=== PATIENT | female | born 1965 ===

== ENCOUNTER 2016-09-21 09:55 | Day surgery (SDC) | payer SELFPAY ==
[2016-09-21] MEDS ORDERED: Propofol 10 mg/ml Inj (20 ML) ONE (10:50)
[2016-09-21] MEDS ORDERED: Lactated Ringer's 500 ML IV ONE (10:55)
[2016-09-21 10:59] VITALS: O2SAT 100
[2016-09-21 11:34] VITALS: TEMP 97
[2016-09-21 11:35] VITALS: BP 131/82; PULSE 68; RESP 20
== END 2016-09-21 12:23 | disposition home or self-care (01) ==
LOC: H.ENDO 09:55
PROVIDERS: ATTEND Internal Medicine Gastroenterology
DX: Z12.11 Encounter for screening for malignant neoplasm of colon (principal); K64.8 Other hemorrhoids